=== PATIENT | female | born 1985 | race Two or more races ===

== ENCOUNTER 2018-07-13 10:49 | Inpatient (IN) | payer BC ==
[2018-07-13 11:50] VITALS: BMI 34.5
--- NOTE | 2018-07-13 14:54 | OBHP ---
Datetime: 07/13/2018 12:00 IP Adm Impression: Term, intrauterine IP Admit Plan: Admit to unit Admit Comment, IP Provider: This is a 30yo 40 wk with no pmh present to [facility] due to rapture of membrane at 5:50 07/13/18. Pt state water gush woke her up and came to ER. Pt denies any vaginal bleed , foul smell. State she have little pressure but abd pain. Pt denies any trauma or fall. Pt denies he adache, chest pain, sob, diarrhea, constipation, dysuria or polyuria. Allergy Sulfa OBGYN: Dr Arteaga PMH: none OBGYN: none PSH noen PFH none SOcial Denies Smoke/ETOH/DRUG use Assessment ant plan A 30 yo 40wk present to [facility] due to rapture of membrane + nitrazine test +pooling Plan Admit to L_D 1L at 999 LR 1L at 125 LR Nitrostat prn pain Epidural requested but will be given if needed Anesthesia consulted Yeyo kelley PGY [address] Godoy: I have evaluated the patient independently and i agree with the above Pelvic Type - PN: Adequate Extremities - PN: Normal Abdomen - PN: Normal Back - PN: Normal Breast - PN: Not Done Lungs - PN: Normal Heart - PN: Normal Thyroid - PN: Normal Neurologic - PN: Normal HEENT - PN: Normal General - PN: Normal FHR - Baseline A Provider: 145 Comments, ACOG Physical Exam: PE PT is not in acute distress abdomen distended non tender, bs+ Gestation - Est Wks by US: 40.0 Pool Provider: Positive Nitrazine Provider: Positive EGA AdmitDate IP: 40.0 Vital Signs Provider: Reviewed; Within Normal Limits IP Chief Complaint: Uterine contractions NICHD Variability Prov Fetus A: Moderate 6-25bpm NICHD Accel Fetus A IP Provider: 15X15 FHR Category Provider Fetus A: Category I Genitourinary Exam: Normal DTRs - PN: Normal
[2018-07-13 15:15] LABS: BASO % 0.3 % (0.0-2.0); EOS % 0.3 % (0.0-4.0); HEMOGLOBIN 14.3 g/dL (12.0-16.0); LYMPH # 1.8 K/uL (1.0-4.3); LYMPH % 13.8 % (20.0-40.0); MEAN CELL VOLUME 92.8 fl (81.0-99.0); MEAN CORPUSCULAR HEMOGLOBIN 30.6 pg (27.0-31.0); MEAN PLATELET VOLUME 8.7 fl (7.2-11.7); MONO % 7.8 % (0.0-10.0); NEUT % 77.8 % (50.0-75.0); NRBC % 0.1 % (0.0-0.0); RBC 4.67 Mil/uL (3.80-5.20); RED CELL DISTRIBUTION WIDTH 13.4 % (11.5-14.5); WHITE BLOOD COUNT 12.8 K/uL (4.8-10.8)
[2018-07-14] MEDS ORDERED: Nalbuphine HCL 10 mg/ml Ampule IVP PRN (03:29)
[2018-07-14] MEDS ORDERED: Nalbuphine 20 mg/ml Inj (1 ml) ONE (03:40)
[2018-07-14] MEDS ORDERED: Nalbuphine 20 mg/ml Inj (1 ml) IVP PRN (04:00)
[2018-07-14] MEDS: Lactated Ringer's 1,000 ML IV SCH ×5 (12:45→22:06)
[2018-07-14] MEDS ORDERED: Fentanyl/Bupivacaine HCl 250 ML EPI ONE (13:07)
[2018-07-14] MEDS ORDERED: Oxytocin 30 UNIT 30 UNITS/500 ML BAG IV ONE (15:51)
--- NOTE | 2018-07-14 15:57 | OBPN ---
Datetime: 07/14/2018 15:53 IP Progress Impression: Reassuring heart rate IP Informed Consent Obtain: Vaginal Delivery; Risks, Benefits and Alternatives Discussed IP Progress Plan: Augmentation; Anticipate Vaginal Delivery FHR - Baseline A Provider: 135 Presentation-Admit: Vertex IP Progress Note Comment: OB Hospitalist on-call - She was checked and noted to be 2cm after epidura l (Manjula) Will start Pitocin NICHD Accel Fetus A IP Provider: 15X15 FHR Category Provider Fetus A: Category I NICHD Variability Prov Fetus A: Moderate 6-25bpm NICHD Decel Fetus A IP Provider: None Datetime: 07/14/2018 10:29 IP Procedures: Sterile Vag Exam Membranes, Provider: Ruptured Amniotic Fluid Color, Provider: Clear Contraction Comments Provider: Q4-5 min Gestation - Est Wks by US: 40.1 Vital Signs Provider: Reviewed; Within Normal Limits Dilatation, Provider: 2 Effacement, Provider: 100 Station, Provider: -2 Datetime: 07/13/2018 12:00 Pool Provider: Positive Nitrazine Provider: Positive
--- NOTE | 2018-07-14 19:47 | OBPN ---
Datetime: 07/14/2018 19:40 IP Progress Impression: Reassuring heart rate IP Progress Plan: Augmentation; Anesthesia consult; Anticipate Vaginal Delivery Pool Provider: Positive Membranes, Provider: Ruptured Contraction Comments Provider: 2-3m FHR - Baseline A Provider: 140 Presentation-Admit: Vertex IP Progress Note Comment: She had epidural. She was started on Pitocin (now at 8miu/h)...she feels p ressure lower abd IUP 40w/Latent phase of labor/prolonged ROM/GBS neg PLAN: she was just given epidural bolus and will see how pain is / may ree-consult anesthesia - m ontior labor progress NICHD Accel Fetus A IP Provider: 15X15 FHR Category Provider Fetus A: Category I NICHD Variability Prov Fetus A: Moderate 6-25bpm Dilatation, Provider: 3-4 Effacement, Provider: 80 Station, Provider: -2 NICHD Decel Fetus A IP Provider: None
[2018-07-14] MEDS ORDERED: Bupivacaine HCl 0.5% PF (30 ml) Inj ONE (19:50)
[2018-07-15] MEDS ORDERED: Oxytocin 30 UNIT 30 UNITS/500 ML BAG IV ONE (01:44)
[2018-07-15] MEDS ORDERED: OXYTOCIN/0.9 % NS 20 UNIT/1,000 ML BAG IV SCH (01:45)
--- NOTE | 2018-07-15 03:49 | OBPN ---
Datetime: 07/15/2018 03:45 IP Progress Impression: Normal progression of labor; Reassuring heart rate IP Informed Consent Obtain: Vaginal Delivery IP Progress Plan: Continue present management; Anticipate Vaginal Delivery IP Progress Note Comment: Notified that she has been progressing. 9cm currently at 3am. Her CTX q 2 -5m Pitocin at 10miu/h...observe labor progress FHR Category Provider Fetus A: Category I
[2018-07-15] MEDS ORDERED: Nasal Spray(Ocean spray) NAS PRN ×2 (03:58→17:12)
[2018-07-15] MEDS ORDERED: Fentanyl/Bupivacaine HCl 250 ML EPI ONE (04:10)
--- NOTE | 2018-07-15 05:47 | OBPN ---
Datetime: 07/15/2018 05:40 IP Progress Impression: Normal progression of labor; Reassuring heart rate IP Progress Plan: Anticipate Vaginal Delivery Pool Provider: Positive Membranes, Provider: Ruptured Contraction Comments Provider: 2-4m FHR - Baseline A Provider: 150 Presentation-Admit: Vertex IP Progress Note Comment: Notiifed that she was having CTX q2-5m and was 9cm at 5am Shje feels pressure A: Second stage of labor will start pushing NICHD Accel Fetus A IP Provider: 15X15 FHR Category Provider Fetus A: Category I NICHD Variability Prov Fetus A: Moderate 6-25bpm Dilatation, Provider: 10 Effacement, Provider: 100 Station, Provider: 0 NICHD Decel Fetus A IP Provider: None
[2018-07-15] MEDS: Lactated Ringer's 1,000 ML IV SCH (06:18)
[2018-07-15] MEDS ORDERED: Oxytocin 10 Units/ml Inj ONE (13:11)
[2018-07-15] MEDS ORDERED: Benzocaine/Menthol SPRAY TOP PRN ×2 (16:24→17:12)
--- NOTE | 2018-07-15 17:48 | OBDS ---
DELIVERY PERSONNEL Delivery Doctor: Mariaelena Luo MD Ore Sampler: Florence Gonzalez RN Anesthesiologist: Dr Colin Resident: Dr Singh (OB fellow) MATERNAL INFORMATION Delivery Anesthesia: Local; Epidural Medications in Delivery: pitocin Estimated Blood Loss (ml): 120 Placenta Cultured: No Maternal Complications: None Provider Comments: 33 year old G1 admitted for PROM. ROM for approximately 50 hrs, no maternal tempe rature recorded. Normal spontaneous vaginal delivery of live female infact using pitocin augmentation , position SUKHI over intact perineum with epidural anesthesia. Terminal meconium present, no nuchal co rd. Infant was placed on maternal abdomen and delayed cord clamping was performed, Apgars 8 _ 8. Spon taneous delivery of placenta with 3-vessel cord. Third degree laceration was repaired as detailed in procedure note. EBL 120cc. Patient is in stable condition and will be recovered in L_D, infant develo ped tachypnea and was taken to Level II nursey for CPAP secondary to presumed TTN. Althea Singh MD OB Fellow I was present throughout the delivery processes and assisted during the delivery LABOR SUMMARY EDC: 07/13/2018 00:00 No. Babies in Womb: 1 Attempted: No Labor Anesthesia: Epidural LABOR INFORMATION Reason for Induction: Not Applicable Onset of Labor: 07/15/2018 00:30 Complete Dilatation: 07/15/2018 06:30 Cervical Ripening Agents: Cytotec @ Other Ripening Agents: cytotec po Oxytocin: Augmentation Group B Beta Strep: Negative Steroids Given: None Reason Steroids Not Administered: Not Applicable MEMBRANES Membranes Rupture Method: Spontaneous Rupture of Membranes: 07/13/2018 05:50 Length of Rupture (hrs): 55.13 Amniotic Fluid Color: Clear Amniotic Fluid Amount: Small Amniotic Fluid Odor: Normal STAGES OF LABOR Stage 1 hrs: 6 Stage 1 min: 0 Stage 2 hrs: 6 Stage 2 min: 28 Stage 3 hrs: 0 Stage 3 min: 8 Total Time in Labor hrs: 12 Total Time in Labor min: 36 VAGINAL DELIVERY Episiotomy: None Laceration Extension: Third Degree Laceration Type: Perineal Laceration Repair: Yes Laceration Repair Note: The external anal sphincter muscles were reapproximated using a figure of ei ght with a 2-0 Vicryl. The second degree laceration was then repaired in the usual fashion using a 2- 0 Vicryl. Initial Vag Sponge Count: 5 Final Vag Sponge Count: 5 Initial Vag Sharps Count: 2 Final Vag Sharps Count: 2 Sponge Count Correct: Yes Sharps Count Correct: Yes BABY A INFORMATION Delivery Date/Time: 07/15/2018 12:58 Method of Delivery: Vaginal Born in Route : No : N/A Forceps: N/A Vacuum Extraction: N/A Shoulder Dystocia : No SHOULDER DYSTOCIA BABY A Delivery Date/Time: 07/15/2018 12:58 PRESENTATION/POSITION BABY A Presentation: Cephalic PLACENTA INFORMATION BABY A Placenta Delivery Time : 07/15/2018 13:06 Placenta Method of Delivery: Spontaneous Placenta Status: Delivered SCORES BABY A Heart Rate 1 min: >100 bpm Resp Effort 1 min: Slow, Irregular Reflex Irritability 1 min: Cough or Sneeze or Pulls Away Muscle Tone 1 min: Active Motion Color 1 min: Body Lutcher, Extremities Blue Resuscitation Effort 1 min: Tactile Stimulation SCORE 1 MIN: 8 Heart Rate 5 min: >100 bpm Resp Effort 5 min: Slow, Irregular Reflex Irritability 5 min: Cough or Sneeze or Pulls Away Muscle Tone 5 min: Active Motion Color 5 min: Body Lutcher, Extremities Blue Resuscitation Effort 5 min: N/A SCORE 5 MIN: 8 INFORMATION BABY A Gestational Age at Delivery: 40.2 Gestational Status: Term Infant Outcome : Liveborn Infant Condition : Stable Infant Sex: Female IDENTIFICATION/MEDS BABY A ID Band Number: [id number] WEIGHT/LENGTH BABY A Birthweight (gms): 3860 Infant Weight (lb): 8 Weight (oz): 8 CORD INFORMATION BABY A No. Cord Vessels: 3 Nuchal Cord : N/A Cord Blood Taken: Yes Suction: Mouth; Nose
[2018-07-15] MEDS ORDERED: Oxytocin 10 Units/ml Inj IM ONE (18:48)
[2018-07-16 07:16] LABS: HEMOGLOBIN 10.7 g/dL (12.0-16.0); MEAN CELL VOLUME 90.8 fl (81.0-99.0); MEAN CORPUSCULAR HEMOGLOBIN 30.5 pg (27.0-31.0); MEAN CORPUSCULAR HGB CONC 33.6 g/dL (33.0-37.0); RBC 3.5 Mil/uL (3.80-5.20); RED CELL DISTRIBUTION WIDTH 13.5 % (11.5-14.5); WHITE BLOOD COUNT 23.2 K/uL (4.8-10.8)
--- NOTE | 2018-07-17 09:03 | OBPPN ---
Datetime: 07/16/2018 09:00 PP Pain Prov: Within normal limits PP Nausea Prov: Denies PP Flatus Prov: Yes PP BM Prov: Yes PP Breasts Prov: Normal PP Heart Prov: Normal PP Lungs Prov: Normal PP Abdomen/Uterus Prov: Normal PP Lochia Prov: Normal PP Vulva/Perineum Prov: Normal PP CVA Tenderness Prov: Normal PP Extremities Prov: Normal PP Impression Prov: Normal progression PP Plan Prov: Continue present management PP Progress Note Prov: day #1 status post , patient recovering well Continue current management Anticipate discharge home tomorrow IP PP Procedures: None Vital Signs Provider PP: Reviewed; Within Normal Limits
[2018-07-17] MEDS ORDERED: Hydrocortisone-Pramoxine(Proctofoam HC) TOP PRN (09:41)
--- NOTE | 2018-07-17 10:34 | OBDCSUM ---
Datetime: 07/17/2018 10:33 Discharged to, Provider: Home Follow up at, Provider: OB Disch Instr Activity: Normal activity Disch Instr Diet: Regular Discharge Instructions, Provider: Routine instructions given Discharge Diagnosis, Provider: Term Delivered Discharge Time: 07/17/2018 10:33 Follow up in weeks, Provider: 6 wks Disch Referrals: None Contraception discussed, Prov: Yes
--- NOTE | 2018-07-17 10:34 | OBPPN ---
Datetime: 07/17/2018 10:31 PP Pain Prov: Within normal limits PP Nausea Prov: Denies PP Flatus Prov: Yes PP Breasts Prov: Normal PP Heart Prov: Normal PP Lungs Prov: Normal PP Abdomen/Uterus Prov: Normal PP Lochia Prov: Normal PP Vulva/Perineum Prov: Normal PP CVA Tenderness Prov: Normal PP Extremities Prov: Normal PP Comments Phys Exam Prov: Fundus firm under umbilicus PP Impression Prov: Normal progression PP Plan Prov: Continue present management; Discharge PP Progress Note Prov: Patient denies CP, no SOB, no N/V, tolerating PO diet, mild lochia, abdominal pain tolerable with meds. Pt reports difficulty ambulating, using to transfer of weight A/P PPD #2 1. Will get physcial therapy consult 2. After pt to be discharged home 3. Discharge instructions reviewed IP PP Procedures: None Vital Signs Provider PP: Reviewed; Within Normal Limits
[2018-07-17] MEDS ORDERED: Hydrocortisone-Pramoxine 1%-1% Foam(10 gm) TOP PRN (11:00)
[2018-07-17 21:25] VITALS: BP 122/70; PULSE 94; RESP 17; TEMP 97.5; O2SAT 97
== END 2018-07-17 16:20 | disposition home or self-care (01) | DRG 768 ==
LOC: H.EROB2 10:49 → H.EROB 10:50 → H.EROB2 12:46 → H.L&D 12:47 → H.OB/GYN 07-15 16:38
PROVIDERS: ADMIT Obstetrics & Gynecology; ATTEND Obstetrics & Gynecology
PROC: 4A1HXCZ Monitoring of Products of Conception, Cardiac Rate, External Approach (ICD-10-PCS; 2018-07-13)
PROC: 0DQR0ZZ Repair Anal Sphincter, Open Approach (ICD-10-PCS; principal; 2018-07-15)
PROC: 10E0XZZ Delivery of Products of Conception, External Approach (ICD-10-PCS; 2018-07-15)
DX: O77.0 Labor and delivery complicated by meconium in amniotic fluid (principal); Z37.0 Single live birth; O70.20 Third degree perineal laceration during delivery, unspecified; Z3A.40 40 weeks gestation of pregnancy; O42.92 Full-term premature rupture of membranes, unspecified as to length of time between rupture and onset of labor